=== PATIENT | male | born 1975 | race Caucasian/White ===

== ENCOUNTER 2019-02-25 20:40 | Observation (INO) | payer MEDICAID ==
[~2019-02-25] VITALS: Ht 190.5 cm; Wt 153.0 kg
[~2019-02-25 20:40] MED LIST: HYDR-4383 PO; LANS30TA4 PO; ONDA8TAB6 PO
[2019-02-25] MEDS ORDERED: aspirin 325mg tablet PO ONE (21:10)
[2019-02-25] MEDS ORDERED: nitroGLYCERIN 0.4mg SUBLingual tab SL PRN ×2 (21:10→22:05)
[2019-02-25 21:25] LABS: BASOPHILS # (AUTO) 0.1 X10'3 (0-0.2); BASOPHILS % (AUTO) 0.5 % (0-1); EOSINOPHILS % (AUTO) 0.2 % (0-6); HEMATOCRIT 37.6 % (42.0-52.0); LYMPHOCYTES # (AUTO) 3.1 X10'3 (1.1-4.8); LYMPHOCYTES % (AUTO) 29.4 % (21-51); MEAN CORPUSCULAR HEMOGLOBIN 28.6 PG (27.0-31.0); MEAN CORPUSCULAR HGB CONC 34.4 g/dL (33.0-36.5); MEAN CORPUSCULAR VOLUME 82.9 FL (78-98); MONOCYTES # (AUTO) 0.6 X10'3 (0-0.9); MONOCYTES % (AUTO) 6.1 % (2-12); NEUTROPHILS # (AUTO) 6.7 X10'3 (1.8-7.7); NEUTROPHILS % (AUTO) 63.8 % (42-75); PLATELET COUNT 187 X10'3 (140-440); RED BLOOD COUNT 4.54 X10'6 (4.70-6.10); RED CELL DISTRIBUTION WIDTH 13.3 % (11.5-14.5); WHITE BLOOD COUNT 10.5 X10'3 (4.5-11.0)
[2019-02-25] MEDS ORDERED: morphine 4 MG/ML inj SYRINge IV ONE (21:25)
[2019-02-25] MEDS ORDERED: ondansetron/PF 4mg/2ml inj IV ONE (21:25)
[2019-02-25 21:35] LABS: INR 1.1 INR; PARTIAL THROMBOPLASTIN TIME 26 SECONDS (22-32)
[2019-02-25 21:43] LABS: ALANINE AMINOTRANSFERASE 31 U/L (12-78); ALBUMIN 3.8 G/DL (3.4-5.0); ALBUMIN/GLOBULIN RATIO 1.1 (1.1-1.5); ALKALINE PHOSPHATASE 84 IU/L (46-116); ANION GAP 9 (8-16); ASPARTATE AMINO TRANSFERASE 14 U/L (10-37); BILIRUBIN,TOTAL 0.5 MG/DL (0.1-1.0); BLOOD UREA NITROGEN 9 MG/DL (7-18); BUN/CREATININE RATIO 11.4 (5.4-32.0); CALCIUM 9.5 MG/DL (8.5-10.1); CHLORIDE 102 MMOL/L (99-107); CREATININE 0.79 MG/DL (0.60-1.10); GLUCOSE 222 MG/DL (70-104); POTASSIUM 3.9 MMOL/L (3.5-5.1); SODIUM 139 MMOL/L (135-145); TOTAL CARBON DIOXIDE 28.5 MMOL/L (24-32); TOTAL PROTEIN 7.3 G/DL (6.4-8.2); eGFR > 90 ML/MIN
[2019-02-25] MEDS ORDERED: LIRA0.6P SQ (22:00)
[2019-02-25] MEDS ORDERED: BUPR100T5 PO (22:00)
[2019-02-25] MEDS ORDERED: FLUO20CA39 PO (22:00)
[2019-02-25] MEDS ORDERED: METF500T PO (22:00)
[2019-02-25] MEDS ORDERED: BACL10TA2 PO (22:01)
[2019-02-25] MEDS ORDERED: morphine 2 MG/ML inj. syringe IV PRN ×2 (22:05)
[2019-02-25] MEDS ORDERED: magnesium hydroxide 30ml (MOM) UD suspension PO PRN (22:05)
[2019-02-25] MEDS ORDERED: ondansetron/PF 4mg/2ml inj IV PRN (22:05)
[2019-02-25] MEDS ORDERED: mag hydrox/Alum hydrox/simeth 30ml oral suspension PO PRN (22:05)
[2019-02-25] MEDS ORDERED: acetaminophen 325mg tablet PO PRN ×2 (22:05)
[2019-02-25 23:34] VITALS: BP 151/79
[2019-02-26] MEDS ORDERED: HYDROcodone/acetaminophen 5mg/325mg tablet PO PRN (02:00)
[2019-02-26 04:26] LABS: BASOPHILS # (AUTO) 0.1 X10'3 (0-0.2); BASOPHILS % (AUTO) 0.5 % (0-1); EOSINOPHILS % (AUTO) 0.3 % (0-6); HEMATOCRIT 37.2 % (42.0-52.0); LYMPHOCYTES # (AUTO) 3.5 X10'3 (1.1-4.8); MEAN CORPUSCULAR HEMOGLOBIN 28.8 PG (27.0-31.0); MEAN CORPUSCULAR VOLUME 82.4 FL (78-98); MEAN PLATELET VOLUME 8.4 FL (7.4-10.4); MONOCYTES # (AUTO) 0.9 X10'3 (0-0.9); MONOCYTES % (AUTO) 8.2 % (2-12); NEUTROPHILS # (AUTO) 6.7 X10'3 (1.8-7.7); PLATELET COUNT 175 X10'3 (140-440); RED BLOOD COUNT 4.51 X10'6 (4.70-6.10); RED CELL DISTRIBUTION WIDTH 13.4 % (11.5-14.5); WHITE BLOOD COUNT 11.2 X10'3 (4.5-11.0)
[2019-02-26 04:34] LABS: ALBUMIN 3.4 G/DL (3.4-5.0); ANION GAP 11 (8-16); BLOOD UREA NITROGEN 10 MG/DL (7-18); BUN/CREATININE RATIO 14.5 (5.4-32.0); CALCIUM 9.4 MG/DL (8.5-10.1); CHLORIDE 103 MMOL/L (99-107); CREATININE 0.69 MG/DL (0.60-1.10); GLUCOSE 82 MG/DL (70-104); POTASSIUM 3.5 MMOL/L (3.5-5.1); SODIUM 143 MMOL/L (135-145); TOTAL CARBON DIOXIDE 29.4 MMOL/L (24-32); eGFR > 90 ML/MIN
[2019-02-26 04:50] LABS: HEMOGLOBIN A1C 8.4 % (4.5-6.2)
--- NOTE | 2019-02-26 06:33 | NUR ---
Problems reprioritized. Patient report given, questions answered & plan of care reviewed with Robyn KELLER.
[2019-02-26 06:40] VITALS: BP 119/70
--- NOTE | 2019-02-26 06:50 | NUR ---
Patient in room [facility] 348. I have received report from Robyn and had the opportunity to ask questions and assume patient care.
[2019-02-26 07:00] VITALS: BP 120/69
[2019-02-26] MEDS ORDERED: metFORMIN 500mg tablet PO SCH (07:00)
--- NOTE | 2019-02-26 07:00 | NUR ---
Student documentation: I have reviewed and agree with all interventions, assessments performed and documented by Robyn. Addendum: 02/26/19 at 1205 by Robyn Kim RN Amended: Links added.
[2019-02-26] MEDS ORDERED: Liraglutide (Victoza) 1.8 MG SQ SCH (08:00)
[2019-02-26] MEDS: aspirin 81mg tab.chew PO SCH (08:34)
[2019-02-26] MEDS: FLUoxetine 20mg capsule PO SCH (08:38)
--- NOTE | 2019-02-26 09:05 | NUR ---
Student Medication Administration: For this medication-pass time frame, all medication were reviewed, dispensed, administered and documented per hospital policy by stu Blackman.
--- NOTE | 2019-02-26 10:33 | NUR ---
pain radiates from below left breast down to LUQ and LLQ Addendum: 02/26/19 at 1045 by Hiral JESUS Amended: Links added.
[2019-02-26 11:27] VITALS: BP 122/71
--- NOTE | 2019-02-26 11:36 | NUR ---
Student documentation: I have reviewed and agree with all interventions, assessments performed and documented by Hiral, deputy director of nursing.
[2019-02-26 12:15] VITALS: BP 117/71
--- NOTE | 2019-02-26 12:17 | NUR ---
Problems reprioritized. Patient report given, questions answered & plan of care reviewed with Oliviaar.
--- NOTE | 2019-02-26 12:21 | NUR ---
DM Consult: A1C 8.4. Pt admit w/ chest pain hx T1DM and new onset abdominal pain started. Takes metformin 1000mg BID and victoza daily at home; on home metformin dose here. Abdomen/pelvis CT negative for colitis or infectious process. Pt PO 100% carb controlled meals meeting needs. LBM 02/25 moderate diarrhea per EMR. Pt currently AOx2 and not appropriate for DM ed at this time. Will continue to monitor. Rec: 1. continue carb controlled diet 2. DM ed once pt more appropriate 3. wt per rx Addendum: 02/26/19 at [address] Amended: Links added.
--- NOTE | 2019-02-26 12:35 | NUR ---
Patient in room [facility] 348. I have received report from Hiral CASH and had the opportunity to ask questions and assume patient care.
[2019-02-26] MEDS ORDERED: levoFLOXACIN-Levaquin 500mg/D5 100 ML IV SCH (12:55)
[2019-02-26] MEDS ORDERED: dextrose 50%-water 50ml dispensing syringe IV PRN ×2 (12:55)
[2019-02-26] MEDS ORDERED: MESSAGE TO PHARMACY PO ONE (12:55)
[2019-02-26] MEDS ORDERED: glucagon, human recombinant 1mg kit SUBCUT PRN (12:55)
[2019-02-26] MEDS ORDERED: dextrose ORAL solution 15 GM/59 ML bottle PO PRN ×2 (12:55)
[2019-02-26] MEDS ORDERED: insulin Lispro (HumaLOG) vial - multi-dose SQ SCH (12:55)
[2019-02-26] MEDS: pantoprazole 40mg Tablet.DR PO SCH (13:31)
--- NOTE | 2019-02-26 15:35 | NUR ---
Student documentation: I have reviewed and agree with all interventions, assessments performed and documented by Katia student nurse.
[2019-02-26] MEDS: metroNIDAZOLE-Flagyl 500mg/NS 100 ML IV SCH (17:20)
--- NOTE | 2019-02-26 18:20 | NUR ---
Problems reprioritized. Patient report given, questions answered & plan of care reviewed with Audrey. Addendum: 02/26/19 at 1821 by Robyn Kim RN Amended: Links added.
--- NOTE | 2019-02-26 18:50 | NUR ---
Patient in room [facility] 348. I have received report from Robyn KELLER and had the opportunity to ask questions and assume patient care.
[2019-02-26 20:04] VITALS: BP 131/75
[2019-02-26] MEDS: heparin, porcine 5000 units/ml vial SQ SCH (20:24)
[2019-02-26] MEDS ORDERED: insulin glargine (Lantus) pen - multi-dose SQ SCH (21:00)
[2019-02-26] MEDS ORDERED: buPROPion SR 100mg tab PO SCH (21:00)
[2019-02-26] MEDS ORDERED: baclofen 10mg tablet PO SCH (21:00)
--- NOTE | 2019-02-26 21:39 | NUR ---
Pt had only eaten his salad at dinnertime. At 1999 pt stated that the abx had made him a little nauseous and asked if he could have a sandwich. BS at 2129 was 241. Until this BS which was only 1 1/2 hours after the sandwich, all other BS during this visit have not met protocol. I did not qualify him for Lantus at this time. I will recheck BS at 0000
[2019-02-27] MEDS: metroNIDAZOLE-Flagyl 500mg/NS 100 ML IV SCH ×2 (00:07→07:56)
[2019-02-27 00:21] VITALS: BP 127/77
[2019-02-27 04:51] LABS: BASOPHILS % (AUTO) 0.4 % (0-1); EOSINOPHILS % (AUTO) 0.4 % (0-6); HEMATOCRIT 39.3 % (42.0-52.0); HEMOGLOBIN 13.8 g/dl (14.0-17.9); LYMPHOCYTES # (AUTO) 3.1 X10'3 (1.1-4.8); LYMPHOCYTES % (AUTO) 31.6 % (21-51); MEAN CORPUSCULAR HEMOGLOBIN 28.9 PG (27.0-31.0); MEAN CORPUSCULAR HGB CONC 35.1 g/dL (33.0-36.5); MEAN CORPUSCULAR VOLUME 82.1 FL (78-98); MEAN PLATELET VOLUME 8.2 FL (7.4-10.4); MONOCYTES # (AUTO) 0.6 X10'3 (0-0.9); MONOCYTES % (AUTO) 6.4 % (2-12); NEUTROPHILS # (AUTO) 5.9 X10'3 (1.8-7.7); NEUTROPHILS % (AUTO) 61.2 % (42-75); PLATELET COUNT 197 X10'3 (140-440); RED BLOOD COUNT 4.79 X10'6 (4.70-6.10); RED CELL DISTRIBUTION WIDTH 13.4 % (11.5-14.5); WHITE BLOOD COUNT 9.7 X10'3 (4.5-11.0)
[2019-02-27 04:57] LABS: ALBUMIN 3.4 G/DL (3.4-5.0); ANION GAP 8 (8-16); BLOOD UREA NITROGEN 11 MG/DL (7-18); BUN/CREATININE RATIO 14.3 (5.4-32.0); CALCIUM 9.1 MG/DL (8.5-10.1); CHLORIDE 105 MMOL/L (99-107); CREATININE 0.77 MG/DL (0.60-1.10); GLUCOSE 161 MG/DL (70-104); POTASSIUM 4.1 MMOL/L (3.5-5.1); SODIUM 142 MMOL/L (135-145); TOTAL CARBON DIOXIDE 29.2 MMOL/L (24-32); eGFR > 90 ML/MIN
--- NOTE | 2019-02-27 06:29 | NUR ---
Problems reprioritized. Patient report given, questions answered & plan of care reviewed with Robyn. Addendum: 02/27/19 at 0630 by Hiral SANCHEZ-NU Patient in room [facility]. I have received report from Robyn and had the opportunity to ask questions and assume patient care.
--- NOTE | 2019-02-27 06:30 | NUR ---
Problems reprioritized. Patient report given, questions answered & plan of care reviewed with Robyn KELLER.
[2019-02-27 07:00] VITALS: BP 141/79
[2019-02-27] MEDS: pantoprazole 40mg Tablet.DR PO SCH (08:12)
[2019-02-27] MEDS: aspirin 81mg tab.chew PO SCH (08:12)
[2019-02-27] MEDS: FLUoxetine 20mg capsule PO SCH (08:13)
[2019-02-27] MEDS: heparin, porcine 5000 units/ml vial SQ SCH (08:14)
--- NOTE | 2019-02-27 08:36 | NUR ---
LUQ and LLQ less active compared with RUQ/RLQ; bowel sounds heart during auscultation of heart Addendum: 02/27/19 at 0842 by Hiral JESUS Amended: Links added.
[2019-02-27] MEDS ORDERED: levoFLOXACIN 500mg tablet PO ONE (09:35)
--- NOTE | 2019-02-27 10:43 | NUR ---
Student Medication Administration: For this medication-pass time frame, all medication were reviewed, dispensed, administered and documented per hospital policy by stu Blackman.
[2019-02-27 10:45] VITALS: BP 141/94
--- NOTE | 2019-02-27 10:47 | NUR ---
Student documentation: I have reviewed and agree with all interventions, assessments performed and documented by Hiral, manager nursing home.
[2019-02-27] MEDS ORDERED: LEVO500T2 PO (11:56)
[2019-02-27] MEDS ORDERED: METR-159 PO (11:56)
--- NOTE | 2019-02-27 12:16 | NUR ---
Problems reprioritized. Patient report given, questions answered & plan of care reviewed with Oliviaar.
--- NOTE | 2019-02-27 12:39 | NUR ---
DM consult: Pt seen at bedside given written and verbal DM ed with referral to outpatient DM class and RD contact information prior to d/c. Will remain available. Addendum: 02/27/19 at [address] Amended: Links added.
== END 2019-02-27 12:18 | disposition home or self-care (01) ==
LOC: ER 20:41 → SUR 3N 22:33 → CMPBEDREQ 22:39
PROVIDERS: ADMIT Internal Medicine; ATTEND Internal Medicine
DX: R07.89 Other chest pain (principal); N64.4 Mastodynia; K52.9 Noninfective gastroenteritis and colitis, unspecified; M54.9 Dorsalgia, unspecified; G89.29 Other chronic pain; F32.9 Major depressive disorder, single episode, unspecified; E10.9 Type 1 diabetes mellitus without complications; G47.30 Sleep apnea, unspecified; I10 Essential (primary) hypertension; E66.01 Morbid (severe) obesity due to excess calories; E78.00 Pure hypercholesterolemia, unspecified; Z68.41 Body mass index [BMI] 40.0-44.9, adult; Z90.49 Acquired absence of other specified parts of digestive tract; Z88.0 Allergy status to penicillin; Z88.1 Allergy status to other antibiotic agents
CPT/HCPCS: 36415; 71045; 74176; 80048; 80053; 82948; 83036; 83880; 84484; 85025; 85610; 85730; 87070; 93005; 96365; 96366; 96367; 96372; 96375; 96376; 99284; G0378; J1644; J1956; J2270; J2405; J3490; J1815